=== PATIENT | male | born 1945 | race Caucasian/White ===

== ENCOUNTER 2018-03-04 05:11 | Day surgery (SDC) | payer MEDICARE ==
[~2018-03-04] VITALS: Ht 167.6 cm; Wt 86.2 kg
--- NOTE | ~2018-03-04 | OP ---
PATIENT NAME: VINCENT MCGUIRE MEDICAL RECORD: [id number] :45 LOCATION:D[facility] ADMISSION DATE: SURGEON: DARNELL ARORA MD DATE OF OPERATION: 03/04/2018 SURGEON: Darnell Arora MD ANESTHESIA: MAC by Dr. Tre Brand. PREOPERATIVE DIAGNOSIS: Elevated PSA 4.32. PROCEDURE: Transrectal ultrasound and prostate biopsy. FINDINGS: A 53 gram prostate with intraprostatic stone. No hypoechoic areas. SPECIMENS: Prostate biopsy cores. ESTIMATED BLOOD LOSS: None. CLINICAL HISTORY: This is a 72-year-old male with an elevated PSA of 4.32. He has some mild obstructive voiding symptoms. There is no family history of prostate cancer. On digital rectal examination, the prostate is benign feeling. He comes today to have a prostate biopsy performed. He is allergic to no medications. HE IS ALLERGIC TO POISON [place] AND [place]. He was given cardiac clearance by Dr. Ross. He comes today to have the procedure done. He has taken prophylactic antibiotics at home and last night, he had a Fleet enema to clean out the rectum. DESCRIPTION OF PROCEDURE: The patient was given IV sedation. He was then placed in the dorsal lithotomy position. The transrectal ultrasound probe was placed into the rectum and prostate size measurements were obtained. Prostate size is estimated at 53 grams. No hypoechoic areas were seen. We did see intraprostatic stones in the plane between BPH and prostatic pseudocapsule. Sextant biopsies were obtained with at least 3 cores from each sextant. Once all the samples were obtained, the procedure was terminated. The patient will be brought back to the preoperative holding area. I will review the pathology results with him next week. TRANSINT:[id number] Voice Confirmation ID: [id number] DOCUMENT ID: [id number] DARNELL ARORA MD at 1149 CC: [id number] DICTATION DATE: 03/04/1824 HOG DRIVER: 03/04/18 1101 [facility] 03/04/18 [place] [id number]
[~2018-03-04 05:11] MED LIST: ASPIRIN EC81 M1 PO; FLAXSEED OIL1000 MG PO; LIPITOR80 MG PO; MIRALAX17 GM PO; SAW PALMETTO450 MG PO; ZESTRIL10 MG PO
[2018-03-04 06:29] VITALS: BP 109/64; Ht 167.6 cm; Wt 86.2 kg
[2018-03-04 06:30] LABS: HEMATOCRIT 42.6 % (42.0-54.0); HEMOGLOBIN 14.2 g/dL (13.5-17.5); MCHC 33.3 g/dL (31.0-37.0); MEAN PLATELET VOLUME 8.9 fL (7.4-10.4); RBC 4.58 10x6/uL (4.20-6.10); RDW 12.4 % (11.5-14.5); WBC 7.1 10x3/uL (4.8-10.8)
== END 2018-03-04 10:25 | disposition home or self-care (01) ==
LOC: D.OPS 05:11 → D.PAN 07:55 → D.OPS 08:00
PROVIDERS: Anesthesiology
DX: R97.20 Elevated prostate specific antigen [PSA] (principal); N41.1 Chronic prostatitis; Z01.812 Encounter for preprocedural laboratory examination

== ENCOUNTER → 2019-08-24 11:49 | Outpatient (CLI) | payer MEDICARE ==
[2018-03-04 06:29] VITALS: BMI 30.7
== END | disposition home or self-care (01) ==
LOC: D.HCCECHO 11:49
PROVIDERS: ATTEND Internal Medicine Cardiovascular Disease
DX: I35.8 Other nonrheumatic aortic valve disorders (principal)